=== PATIENT | male | born 1985 | race Caucasian/White ===

== ENCOUNTER 2024-12-23 22:05 | Emergency (ER) | payer SELFPAY ==
[2024-12-23 22:06] VITALS: BP 232/92; PULSE 86; RESP 18; TEMP 37.1; O2SAT 98; BMI 39.4
[2024-12-23 22:30] VITALS: BP 162/75; PULSE 81; RESP 18; O2SAT 97
--- NOTE | 2024-12-23 22:30 | CT_ITS ---
PROCEDURE: CT BRAIN/HEAD WITHOUT CONTRAST; SINUS/FACIAL BONE 12/23/2024 REASON FOR EXAM: HEAD INJURY; HEAD/FACE INJURY TECHNIQUE: Procedure Code: CTBR; CTSI Modality: CT Procedure: BRAIN/HEAD WITHOUT CONTRAST; SINUS/FACIAL BONE Coronal and Sagittal reconstruction series were provided. One or more dose reduction techniques were used (e.g., Automated exposure control, adjustment of the mA and/or kV according to patient size, use of iterative reconstruction technique. RADIATION DOSE SUMMARY: DLP: 1625.47 mGycm COMPARISON: None. FINDINGS: No acute intracranial hemorrhage, extra-axial collection, mass effect or acute infarct. The ventricular and sulcal size and configuration are within normal limits. Acute mildly depressed fracture of the anterior wall of left maxillary sinus. Associated hemorrhagic fluid within the left maxillary sinus. Remainder of the paranasal sinuses are well-aerated. No additional acute maxillofacial bone fracture is seen. Intact skull base and calvarium. No mastoid effusions. No involvement of the orbital rim. The globes appear intact. No intraorbital emphysema or hematoma. Mild subcutaneous contusional changes in the left premaxillary facial soft tissues. CT/Brain/Head without Contrast IMPRESSION: 1. No acute intracranial abnormality. 2. Acute mildly depressed fracture of the anterior wall of left maxillary sinus . Mild subcutaneous contusional changes in the left premaxillary facial soft tissues. Reading Location: [id number]
--- NOTE | 2024-12-23 22:30 | CT_ITS ---
PROCEDURE: CT BRAIN/HEAD WITHOUT CONTRAST; SINUS/FACIAL BONE 12/23/2024 REASON FOR EXAM: HEAD INJURY; HEAD/FACE INJURY TECHNIQUE: Procedure Code: CTBR; CTSI Modality: CT Procedure: BRAIN/HEAD WITHOUT CONTRAST; SINUS/FACIAL BONE Coronal and Sagittal reconstruction series were provided. One or more dose reduction techniques were used (e.g., Automated exposure control, adjustment of the mA and/or kV according to patient size, use of iterative reconstruction technique. RADIATION DOSE SUMMARY: DLP: 1625.47 mGycm COMPARISON: None. FINDINGS: No acute intracranial hemorrhage, extra-axial collection, mass effect or acute infarct. The ventricular and sulcal size and configuration are within normal limits. Acute mildly depressed fracture of the anterior wall of left maxillary sinus. Associated hemorrhagic fluid within the left maxillary sinus. Remainder of the paranasal sinuses are well-aerated. No additional acute maxillofacial bone fracture is seen. Intact skull base and calvarium. No mastoid effusions. No involvement of the orbital rim. The globes appear intact. No intraorbital emphysema or hematoma. Mild subcutaneous contusional changes in the left premaxillary facial soft tissues. CT/Sinus/Facial Bone IMPRESSION: 1. No acute intracranial abnormality. 2. Acute mildly depressed fracture of the anterior wall of left maxillary sinus . Mild subcutaneous contusional changes in the left premaxillary facial soft tissues. Reading Location: [id number]
--- NOTE | 2024-12-23 22:40 | RAD_ITS ---
PROCEDURE: LEFT RIBS UNI MIN 3V W/PA CHEST 12/23/2024 REASON FOR EXAM: PAIN TECHNIQUE: Procedure Code: RADRIB Modality: DX Procedure: RIBS UNI MIN 3V W/PA CHEST COMPARISON: None. FINDINGS: Lungs/Pleura: Clear. No pneumothorax or sizable pleural effusion. Heart/Mediastinum: Within normal limits. Bones/Soft tissues: Unremarkable. No acute fracture or dislocation appreciated. RAD/Ribs Uni Min 3V w/PA Chest IMPRESSION: No acute cardiopulmonary disease. No evidence of acute fracture or dislocation. Reading Location: [id number]
[2024-12-23 23:00] VITALS: BP 177/81; PULSE 78; RESP 18; O2SAT 97
--- NOTE | 2024-12-23 23:38 | EDS_ITS ---
HPI History of Present Illness Chief Complaint: Fall Informant: patient Narrative Narrative: Patient is a 39-year-old male with past medical history of high tension. He states that roughly 30 minutes ago he was getting into the shower when he slipped on the slick shower floor and fell hitting the left side of his head/face and his left chest. He states he was dazed but denies any loss of consciousness. He states that he does not have a history of bleeding disorder nor does he take blood thinners. He states he has a headache and left-sided facial and rib pain and has concern for underlying trauma from the injury/fall and secondary to this comes in for evaluation [facility] Medical History (Updated 12/24/24 @ 00:[address] Pablito Bai, DO) High blood cholesterol Poor circulation Spinal cord lesion Hypertension Home Medications ?Medication ?Instructions ?Recorded ?Last Taken ?Type sulfamethoxazole 800 1 tab PO BID 7 days #14 tabs 12/23/24 Unknown Rx mg-trimethoprim 160 mg tablet (Bactrim DS) Allergy/AdvReac Type Severity Reaction Status Date / Time amoxicillin Allergy UNKNOWN Verified 12/23/24 22:09 Penicillins Allergy UNKNOWN Verified 12/23/24 22:09 Tetracyclines Allergy UNKNOWN Verified 12/23/24 22:09 Family History no significant family his Social History (Updated 12/23/24 @ 22:10 by Leigh Ann Fuentes) housing: house Smoking Status: Never smoker ROS ROS ED Constitutional Constitutional ED: Denies chills or fever(s) Eyes Eyes: Denies blurry vision or change in vision ENT ENT ED: Reports other Details: Positive left sided facial/jaw pain Cardiovascular Cardiovascular: Reports other Details: Negative syncope ; Denies chest pain, palpitations or racing heartbeat Respiratory/Chest Respiratory/Chest: Denies cough or dyspnea Gastrointestinal Gastrointestinal: Denies abdominal pain, diarrhea, nausea or vomiting Musculoskeletal Musculoskeletal: Reports other Details: Positive left chest wall pain ; Denies back pain or neck pain Integumentary Reports Abrasions Neurologic Neurologic: Reports headache(s); Denies paresthesias or weakness Hematologic/Lymphatic Hematologic/Lymphatic: Denies easy bleeding or easy bruising EXAM Physical Exam Const Vital Signs: 12/23/24 22:06 12/23/24 22:09 12/23/24 22:30 Temperature 98.8 F Temperature Source Oral Pulse Rate 86 81 Respiratory Rate 18 18 Respiratory Effort Normal Non-Labored Respiratory Depth Normal Respiratory Pattern Normal Blood Pressure 232/92 H 162/75 H Blood Pressure Mean 138 104 Pulse Ox 98 97 Oxygen Delivery Method Room Air Room Air 12/23/24 23:00 12/23/24 23:46 Temperature 98 F Temperature Source Pulse Rate 78 75 Respiratory Rate 18 18 Respiratory Effort Respiratory Depth Respiratory Pattern Blood Pressure 177/81 H 147/86 H Blood Pressure Mean 113 106 Pulse Ox 97 100 Oxygen Delivery Method Room Air Positive well nourished and well developed General Appearance ED: well developed HEENT HEENT Narrative: No signs of depressed or basilar skull fracture No septal hematoma noted There is mild soft tissue swelling along the left orbital floor/zygomatic arch Patient also has superficial abrasion to the middle left portion of the upper lip without active bleeding No obvious dental fracture noted either Eyes PERRL and EOMs intact bilaterally Eyes Narrative: No hyphema noted Neck supple Neck Narrative: No bony deformity or step-off of the cervical spine; no midline tenderness to palpation Patient is able to move his neck in all directions without pain Chest Wall Chest Narrative: There is mild reproducible anterior lateral pain of the left chest wall/ribs regions 6-9 without bony deformity or crepitance Resp normal respiratory effort and clear to auscultation bilaterally Cardio regular rate and regular rhythm GI normal to inspection, nondistended, normoactive bowel sounds, non-tender, non- distended and no masses Auscultation: normoactive bowel sounds Palpation: soft Back/Spine Back/Spine Narrative: No bony deformity or step-off of the thoracic or lumbar spine; no midline tenderness to palpation Extremity normal to inspection Extremity Narrative: Pelvis is stable and there is no shortening or external rotation of either lower extremity Patient is able to move all extremities without difficulty No signs of long bone injury such as bony deformity or joint effusion Neuro oriented x3, CN's II-XII intact bilaterally and no sensory deficits noted Sensorium / Orientation: alert Motor Exam: strength 5/5 throughout Psych mental status grossly normal Skin Skin Narrative: Mild soft tissue swelling and ecchymosis to the left side of the face as documented above MDM MDM MDM Narrative Medical decision making narrative: Patient arrived to the ER hypertensive but has a past medical history of this and otherwise vitals are stable. He reported a mechanical fall and therefore there is no need for cardiac or syncope workup. He is not on a blood thinner but with him falling and striking his head/face there is concern for traumatic subarachnoid or subdural hemorrhage versus nasal fracture orbital floor fracture or jaw fracture. Therefore CT of the head and face were obtained. Also with pain along the left ribs there is concern for rib contusion versus fracture versus pneumothorax. The rib series revealed no sign of acute injury or pneumothorax. The CT of the head revealed no skull fracture or brain bleed. Facial CT showed an orbital floor fracture but no signs of globe injury or entrapment. Therefore there is no need for emergent ENT/oral maxillofacial consultation. The patient was placed on antibiotics secondary to the communication of the fracture with the orbit. However without entrapment or signs of retrobulbar hematoma or globe injury he can follow-up as an outpatient to discuss surgical fixation. History & Record Review Discussion w/independent historian: Patient Radiography Diagnostic Testing: Clinical Impression(s) from Imaging Studies Brain CT 12/23/24 22:30 IMPRESSION: 1. No acute intracranial abnormality. 2. Acute mildly depressed fracture of the anterior wall of left maxillary sinus. Mild subcutaneous contusional changes in the left premaxillary facial soft tissues. Reading Location: [facility] Facial/Sinus 12/23/24 22:30 IMPRESSION: 1. No acute intracranial abnormality. 2. Acute mildly depressed fracture of the anterior wall of left maxillary sinus. Mild subcutaneous contusional changes in the left premaxillary facial soft tissues. Reading Location: [facility] Ribs w/Chest X-Ray 12/23/24 22:40 IMPRESSION: No acute cardiopulmonary disease. No evidence of acute fracture or dislocation. Reading Location: [facility] Left rib series with 1 view chest as interpreted by the emergency medicine physician reveals no rib fracture pneumothorax or infiltrate Discharge Plan Triage Chief Complaint: Fall ED Provider: Pablito Bai Dx/Rx/DC Orders Clinical Impression: Fracture of orbital floor, left side, initial encounter for closed fracture, Accidental fall, Hypertension Instructions: Facial Fracture Prescriptions: New sulfamethoxazole-trimethoprim [Bactrim DS] 800-160 mg tablet 1 tab PO BID 7 Days Qty: 14 0RF Primary Care Provider: Care Physician,No Primary Referrals: Care Physician,No Primary [Primary Care Provider] - Activity Restrictions/Additional Instructions: Please follow-up with a ear nose and throat physician or a oral maxillofacial surgeon to discuss need for plating secondary to your orbital floor fracture. Take the antibiotic as directed to prevent a secondary infection. Do not wear your CPAP for the next 7 days other to avoid increased pressure into the sinus passage. If you develop a fever or have any further concerns please return to the ER for repeat evaluation Print Language: Cuban Disposition Disposition: Home, Self Care Discharge Date/Time: 12/23/24 23:46
[2024-12-23] MEDS: Smz/Tmp Ds Tablet 1 TABLET PO (23:45)
[2024-12-23 23:46] VITALS: BP 147/86; PULSE 75; RESP 18; TEMP 36.6; O2SAT 100
== END 2024-12-23 23:46 | disposition home or self-care (01) ==
PROVIDERS: Emergency Provider Emergency Medicine; Visit Provider Emergency Medicine
DX: S02.32XA Fracture of orbital floor, left side, initial encounter for closed fracture (principal); S00.511A Abrasion of lip, initial encounter; R07.81 Pleurodynia; W18.2XXA Fall in (into) shower or empty bathtub, initial encounter; Y93.E1 Activity, personal bathing and showering; I10 Essential (primary) hypertension
CPT/HCPCS: 70450; 70486; 71101; 99284